=== PATIENT | male | born 1960 | race Caucasian/White ===

== ENCOUNTER → 2017-03-01 | Outpatient (CLI) | payer MEDICARE, BC ==
[~2017-03-01] MED LIST: ALPRAZOLAM PO; ASPIRIN PO; DARVOCET-N 1001 TAB PO; FLEXERIL PO; LISINOPRIL PO; METOPROLOL-HCTZ1 TA1 PO; PRILOSEC PO; [UNRECOGNIZED DRUG - OTHER]; [UNRECOGNIZED DRUG - OTHER]
--- NOTE | ~2017-03-01 | MR32 ---
[facility] A Service of [facility] & [facility] RADIOLOGY TEXT RESULTS PATIENT: CRUZITO FLORES LOCATION: [facility] : 58 UNIT #: [id number] AGE: [address]: Brooklyn Mascorro MD SEX: M ORDER DR: [id number] [address] [id number] O MR#: [id number] Acc #: [id number] NAME: CRUZITO FLORES : 1960 SEX: M STUDY DATE/TIME: 03/01/2017 9:34 UNIT: [facility] ROOM: STUDY DESCRIPTION: MR Cervical Wo Contrast Attending Physician: Brooklyn Mascorro M.D. Referring Physician: Brooklyn Mascorro M.D. Ordering Physician: Brooklyn Mascorro M.D. Primary Care Physician: Brooklyn Mascorro M.D. MRI CENTER REPORT This report is preliminary unless electronic signature is present. EXAM Cervical MRI HISTORY Patient fell down steps after tripping over a dog in July 2016. Complaint of neck pain radiating to the left shoulder since then for the past 6 months. TECHNIQUE Multiplanar imaging of the cervical spine was performed with short and long TR. COMPARISON 01/27/2007 FINDINGS Degenerative changes are seen throughout the cervical spine showing significant progression since the previous scan in 2006. At C2-C3, there is a small central disc osteophyte complex and mild bilateral facet disease. There is no significant canal narrowing and foraminal narrowing is mild bilaterally. At C3-4, the disc is collapsed. There is a broad-based posterior disc osteophyte complex extending to both uncovertebral joints. There is severe central stenosis. The AP diameter of the spinal canal at C3-4 is approximately 8.0 mm. Foraminal stenosis is moderately severe bilaterally. At C4, there is abnormal increased T2 signal in the left side of the spinal cord. This probably represents myelomalacia from chronic cord compression. An acute cord contusion is not excluded. A spinal cord tumor is also not excluded. I would recommend the patient return for postcontrast imaging of the cervical spine to further evaluate this [facility] A Service of [facility] RADIOLOGY TEXT RESULTS PATIENT: CRUZITO FLORES LOCATION: [facility] : 58 UNIT #: [id number] AGE: [address]: Brooklyn Mascorro MD SEX: M ORDER DR: abnormal focus in the cervical cord. At C4-5, there is disc space collapse with broad-based posterior disc bulging and osteophyte formation that extends more to the right uncovertebral joint than the left. Central stenosis is severe. Foraminal stenosis is severe bilaterally and greater on the right. At C5-6, there is broad-based posterior disc bulging and osteophyte formation slightly greater to the right than to the left. To the right of midline there is ventral cord contact and compression. Central stenosis is severe with an AP diameter of the spinal canal measuring about 8.0-9.0 mm. Foraminal stenosis is severe bilaterally. At C6-7, the disc is narrowed with broad-based posterior disc bulging and osteophyte formation extending to both uncovertebral joints. Central stenosis is moderate. Foraminal stenosis is moderate on both sides. The C7-T1 level shows moderate foraminal narrowing on the right from uncovertebral joint osteophyte formation. The canal and left foramen are widely patent. There is no evidence of marrow edema to suggest a fracture. No paraspinous soft tissue masses are seen. IMPRESSION Advanced multilevel cervical degenerative disc disease as described above level by level with significant progression since 2006. Central stenosis is severe at C3-4, C4-5 and C5-6. Degenerative changes are asymmetrically worse on the right than on the left at both C4-5 and C5-6. There is abnormal increased T2 signal in the left side of the spinal cord at C4 likely representing myelomalacia from chronic cord compression. I would recommend the patient return for postcontrast imaging to further evaluate this lesion as to its significance. We will attempt to contact the patient to have him return for this additional imaging. Results will be reported separately. Dictated by... Carroll Prakash M.D. THIS IS AN ELECTRONICALLY VERIFIED REPORT Carroll Prakash M.D. at 03/02/2017 4:10 PM RLF/herbert TD: 03/02/2017 11:16 JOB #: [id number] MRI CENTER REPORT Page 1 of 1
== END | disposition home or self-care (01) ==
LOC: SMRI 09:00
DX: M54.12 Radiculopathy, cervical region (principal); M50.10 Cervical disc disorder with radiculopathy, unspecified cervical region; M48.02 Spinal stenosis, cervical region; M47.22 Other spondylosis with radiculopathy, cervical region; R93.8 Abnormal findings on diagnostic imaging of other specified body structures
CPT/HCPCS: 72141

== ENCOUNTER → 2017-03-15 | Outpatient (CLI) | payer MEDICARE, BC ==
--- NOTE | ~2017-03-15 | MR30 ---
[facility] A Service of [facility] & [facility] RADIOLOGY TEXT RESULTS PATIENT: CRUZITO FLORES LOCATION: [facility] : 58 UNIT #: [id number] AGE: [address]: Brooklyn Mascorro MD SEX: M ORDER DR: [id number] [address] [address] [id number] O MR#: [id number] Acc #: [id number] NAME: CRUZITO FLORES : 1960 SEX: M STUDY DATE/TIME: 03/15/2017 11:58 UNIT: [facility] ROOM: STUDY DESCRIPTION: MR Cervical W Contrast Attending Physician: Brooklyn Mascorro M.D. Referring Physician: Brooklyn Mascorro M.D. Ordering Physician: Brooklyn Mascorro M.D. Primary Care Physician: Brooklyn Mascorro M.D. MRI CENTER REPORT This report is preliminary unless electronic signature is present. EXAM Cervical MRI with contrast. HISTORY Recent head and neck injury last fall, approximately 08/09/2016. Persistent neck pain with radicular symptoms. Abnormal appearance to the cervical cord on a recent noncontrasted MRI. The patient returns for postcontrast imaging to evaluate this abnormal signal in the left side of the cervical cord. TECHNIQUE Multiplanar imaging of the cervical spine was performed with T1-weighted imaging after administration of contrast. 15 mL of MultiHance was used. FINDINGS The lesion in the left side of the cord does enhance with contrast. It measures approximately 7 mm in diameter. This is located just below the C3-4 disc. Subacute cord infarct could account for this enhancement. A cord tumor should also be considered but is felt to be less likely given the lack of mass effect in this area. Consider follow up MRI of the cervical spine in 3-4 months pre and postcontrast. No additional areas of cord enhancement are seen. IMPRESSION The area of increased T2 signal in the cervical cord noted on the recent noncontrasted MRI of 03/01/2017 does show contrast enhancement on the postcontrast images measuring about 7 mm in diameter. 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 Consider follow up MRI with and without contrast in 3-4 months and to recheck this for any evidence of ion exchange operator time. [facility] A Service of [facility] & [facility] RADIOLOGY TEXT RESULTS PATIENT: CRUZITO FLORES LOCATION: [facility] : 58 UNIT #: [id number] AGE: [address]: Brooklyn Mascorro MD SEX: M ORDER DR: Dictated by... Carroll Prakash M.D. THIS IS AN ELECTRONICALLY VERIFIED REPORT Carroll Prakash M.D. at 03/18/2017 3:45 PM LUDWIG/divina TD: 03/17/2017 19:20 JOB #: [id number] MRI CENTER REPORT Page 1 of 1
== END | disposition home or self-care (01) ==
LOC: SMRI 10:15
DX: M48.02 Spinal stenosis, cervical region (principal); G95.89 Other specified diseases of spinal cord; R90.89 Other abnormal findings on diagnostic imaging of central nervous system
CPT/HCPCS: 72142; A9581